=== PATIENT | female | born 1975 ===

== ENCOUNTER 2019-05-30 19:42 | Emergency (ER) | payer OTHER ==
--- NOTE | 2019-05-30 20:11 | UC ---
Dental HPI - HPI Summary HPI Summary: 43-year-old female who has had a toothache with her left lower molar which has been broken. She denies any fever or chills. She is attempting to get into a dentist in the next week. - History of Current Complaint Chief Complaint: UCDentalProblem Stated Complaint: DENTAL PAIN Time Seen by Provider: 05/30/19 19:48 Hx Obtained From: Patient Hx Last Menstrual Period: [id number] ?: No Onset/Duration: Gradual Onset Severity: Mild Pain Intensity: 3 Aggravating Factor(s): Chewing Alleviating Factor(s): Nothing - Allergies/Home Medications Allergies/Adverse Reactions: Allergies Allergy/AdvReac Type Severity Reaction Status Date / Time No Known Allergies Allergy Verified 05/30/19 20:04 Home Medications: Home Medications Multivitamin [Multivitamins] 1 tab PO DAILY 05/30/19 [History Confirmed 05/30/19 ] PMH/Surg Hx/FS Hx/Imm Hx Previously Healthy: Yes - Surgical History Surgical History: None - Family History Known Family History: Positive: Non-Contributory - Social History Alcohol Use: Rare Substance Use Type: None Smoking Status (MU): Light Every Day Tobacco Smoker Type: eCigarettes Review of Systems All Other Systems Reviewed And Are Negative: Yes ENT: Positive: Dental Pain Is Patient Immunocompromised?: No Physical Exam Triage Information Reviewed: Yes Appearance: Well-Appearing, No Pain Distress, Well-Nourished Vital Signs: Initial Vital Signs Temp 98.3 F 05/30/19 19:58 Pulse 82 05/30/19 19:58 Resp 16 05/30/19 19:58 BP 122/75 05/30/19 19:58 Pulse Ox 99 05/30/19 19:58 Vital Signs Reviewed: Yes Eyes: Positive: Conjunctiva Clear ENT: Positive: Pharynx normal Dental: Positive: Dental Fracture @ - Patient has a part of the left lower molar missing but the filling is intact. Gumline is normal color with mild swelling. No erythema. No drainage and no abscess formation. Neck: Positive: Supple, Nontender, No Lymphadenopathy Respiratory: Positive: Lungs clear, Normal breath sounds, No respiratory distress, No accessory muscle use Cardiovascular: Positive: RRR, No Murmur, Pulses Normal, Brisk Capillary Refill Musculoskeletal Exam: Normal Neurological Exam: Normal Psychological Exam: Normal Skin Exam: Normal Dental Complaint Course/Dx - Course Course Of Treatment: The patient is attempting to get into a dentist in the next week. I'm going to start her on clindamycin. She can alternate Tylenol with Motrin as directed. - Differential Dx/Diagnosis Provider Diagnosis: Toothache Discharge ED - Sign-Out/Discharge Documenting (check all that apply): Patient Departure All imaging exams completed and their final reports reviewed: No Studies - Discharge Plan Condition: Good Disposition: HOME Prescriptions: Clindamycin Cap(NF) [Clindamycin Cap 300 mg Cap(NF)] 300 mg PO TID 10 Days #30 cap Patient Education Materials: Toothache (ED) Referrals: Miguel Hanley MD [Primary Care Provider] - Additional Instructions: Tylenol every 4 hours and may alternate with Motrin every 8 hours for pain. Definite follow-up with the dentist in the next week. - Billing Disposition and Condition Condition: GOOD Disposition: Home - Attestation Statements Provider Attestation: I was available for consult. This patient was seen by the [facility]. The patient was not presented to, seen by, or examined by me. -Nima
== END 2019-05-30 20:15 | disposition home or self-care (01) ==
LOC: UCEAST 19:42
DX: K08.89 Other specified disorders of teeth and supporting structures (principal); F17.210 Nicotine dependence, cigarettes, uncomplicated
CPT/HCPCS: 99202; G0463